=== PATIENT | male | born 1955 | race Caucasian/White ===

== ENCOUNTER 2024-03-21 08:01 | Day surgery (SDC) | payer OTHER, MEDICAID ==
[~2024-03-21] VITALS: Ht 175.3 cm; Wt 80.7 kg
[~2024-03-21 08:01] MED LIST: CEFAZOLIN SOD 2 GM in D5W 50 ML IV ONE
[2024-03-21] MEDS ORDERED: CELECOXIB 100 MG CAPSULE ONE (08:20)
[2024-03-21] MEDS ORDERED: ACETAMINOPHEN 500 MG TABLET ONE (08:20)
[2024-03-21] MEDS ORDERED: SCOPOLAMINE HYDROBROMIDE 1 MG PATCH .72 H (TRANSDERM-SCOP) TD ONE (08:21)
[2024-03-21] MEDS ORDERED: oxyCODONE HCL 10 MG TAB.ER.12H PO ONE (08:21)
[2024-03-21] MEDS: SCOPOLAMINE HYDROBROMIDE 1 MG PATCH .72 H (TRANSDERM-SCOP) TD ONE (08:42)
[2024-03-21] MEDS: ACETAMINOPHEN 500 MG TABLET PO ONE (08:42)
[2024-03-21] MEDS: CELECOXIB 100 MG CAPSULE PO ONE (08:42)
[2024-03-21] MEDS: oxyCODONE HCL 10 MG TAB.ER.12H PO ONE (09:40)
[2024-03-21] MEDS ORDERED: BUPIVACAINE /PF 0.25% 30 ML VIAL INJ ONE (09:40)
[2024-03-21] MEDS ORDERED: METOCLOPRAMIDE HCL 10 MG/2 ML VIAL IVP PRN ×2 (09:45→10:30)
[2024-03-21] MEDS ORDERED: LACTULOSE 20 GM/30 ML UDC PO PRN (09:45)
[2024-03-21] MEDS ORDERED: DIPHENHYDRAMINE HCL 25 MG CAPSULE PO PRN (09:45)
[2024-03-21] MEDS ORDERED: BISACODYL 10 MG/SUPPOSITORY RC PRN (09:45)
[2024-03-21] MEDS ORDERED: LR 1,000 ML IV SCH (10:30)
[2024-03-21] MEDS ORDERED: MEPERIDINE HCL/PF 25 MG/ML DISP.SYRIN IVP PRN (10:30)
[2024-03-21] MEDS ORDERED: oxyCODONE HCL 5 MG TABLET PO PRN (11:00)
[2024-03-21] MEDS ORDERED: HYDROmorphone 1 MG/ML INJ. CARTRIDGE IVP PRN ×3 (11:00)
[2024-03-21] MEDS ORDERED: LORATADINE 10 MG TABLET PO PRN (11:00)
[2024-03-21] MEDS ORDERED: traMADol HCL HCL 50 MG TABLET (ULTRAM) PO PRN (11:00)
[2024-03-21] MEDS ORDERED: ceFAZolin SODIUM 2 GM in D5W 50 ML IV SCH (11:15)
[2024-03-21] MEDS ORDERED: HYDROmorphone 1 MG/ML INJ. CARTRIDGE ONE (12:43)
[2024-03-21] MEDS: HYDROmorphone 1 MG/ML INJ. CARTRIDGE IVP PRN ×2 (12:47→13:32)
[2024-03-21] MEDS: TAMSULOSIN HCL 0.4 MG CAP PO ONE (13:25)
[2024-03-21] MEDS ORDERED: TAMSULOSIN HCL 0.4 MG CAP PO ONE ×2 (13:30→15:00)
[2024-03-21] MEDS: KETOROLAC TROMETHAMINE 10 MG TABLET (TORADOL) PO SCH (14:00)
[2024-03-21] MEDS ORDERED: ACETAMINOPHEN 500 MG TABLET PO SCH (14:00)
[2024-03-21] MEDS ORDERED: oxyCODONE HCL 5 MG TABLET ONE (14:45)
[2024-03-21] MEDS: oxyCODONE HCL 5 MG TABLET PO PRN (15:00)
[2024-03-21] MEDS: ONDANSETRON HCL 4 MG/2 ML VIAL IVP PRN (15:30)
[2024-03-21 15:37] VITALS: BP_SYST 145; PULSE 81; RESP 18; TEMP 98.9; O2SAT 98
[2024-03-21] MEDS ORDERED: ONDANSETRON HCL 4 MG/2 ML VIAL ONE (15:43)
[2024-03-21] MEDS ORDERED: SENNOSIDES/DOCUSATE SODIUM 1 TAB TABLET(SENOKOT-S) PO SCH (21:00)
[2024-03-22] MEDS ORDERED: TAMSULOSIN HCL 0.4 MG CAP PO SCH (09:00)
[2024-03-22] MEDS ORDERED: ASPIRIN 81 MG TAB.CHEW PO SCH (09:00)
[2024-03-22] MEDS ORDERED: CELECOXIB 200 MG CAPSULE PO SCH (11:00)
== END 2024-03-21 17:30 | disposition home or self-care (01) ==
LOC: SDS 08:01 → SMU 08:01 → SDS 17:30
PROVIDERS: ATTEND Student in an Organized Health Care Education/Training Program
DX: M17.11 Unilateral primary osteoarthritis, right knee (principal); M25.761 Osteophyte, right knee; M25.561 Pain in right knee; I10 Essential (primary) hypertension; E11.9 Type 2 diabetes mellitus without complications; E78.5 Hyperlipidemia, unspecified; G43.909 Migraine, unspecified, not intractable, without status migrainosus; K21.9 Gastro-esophageal reflux disease without esophagitis; Z82.49 Family history of ischemic heart disease and other diseases of the circulatory system; Z83.3 Family history of diabetes mellitus; Z79.899 Other long term (current) drug therapy
CPT/HCPCS: 27447; 97162; 64447; 73560; 96379; 97110; 97530; 97116; 82948; 88305; 88311; J3490 ×3; J0690; J0696; J3465; J2405; J3370; J3010; J1170; J7060 ×2; J7120; C1776 ×3